=== PATIENT | female | born 1985 | race Caucasian/White ===

== ENCOUNTER 2016-04-22 11:53 | Outpatient (CLI) | payer OTHER ==
[2016-04-22 13:05] LABS: ABSOLUTE BASOPHILS # (AUTO) 0.1 10^3/uL (0.0-0.2); ABSOLUTE EOSINOPHILS # (AUTO) 0.1 10^3/uL (0.0-0.6); ABSOLUTE LYMPHOCYTES (AUTO) 1.9 10^3/uL (0.5-4.7); ABSOLUTE MONOCYTES (AUTO) 0.7 10^3/uL (0.1-1.4); ABSOLUTE NEUT (AUTO) 6.5 10^3/uL (1.7-8.2); BASOPHILS % (AUTO) 0.7 % (0-2); EOSINOPHILS % (AUTO) 1.4 % (0-6); HEMATOCRIT 31.4 % (36.0-47.0); HEMOGLOBIN 10.9 g/dL (12.0-15.5); HGB HCT DIFFERENCE 1.3; LYMPHOCYTES % (AUTO) 20.6 % (13-45); MEAN CORPUSCULAR HEMOGLOBIN 29.9 pg (27.0-33.4); MEAN CORPUSCULAR HGB CONC 34.6 g/dL (32.0-36.0); MEAN CORPUSCULAR VOLUME 86 fl (80-97); MONOCYTES % (AUTO) 7.6 % (3-13); RED BLOOD COUNT 3.64 10^6/uL (3.72-5.28); SEGMENTED NEUTROPHILS % (AUTO) 69.7 % (42-78); WHITE BLOOD COUNT 9.2 10^3/uL (4.0-10.5)
[2016-04-22 13:11] LABS: APPEARANCE,URINE CLOUDY; BILIRUBIN,URINE NEGATIVE (NEGATIVE); GLUCOSE, URINE NEGATIVE (NEGATIVE); KETONES,URINE NEGATIVE (NEGATIVE); LEUKOCYTE ESTERASE,URINE TRACE (NEGATIVE); NITRITE,URINE NEGATIVE (NEGATIVE); PROTEIN,URINE NEGATIVE (NEGATIVE); URINE SPECIFIC GRAVITY 1.014; UROBILINOGEN,URINE NEGATIVE mg/dL (<2.0)
[2016-04-22 13:22] LABS: ALANINE AMINOTRANSFERASE 15 U/L (9-52); ALBUMIN 3.6 g/dL (3.5-5.0); ALKALINE PHOSPHATASE 60 U/L (38-126); ANION GAP 9 (5-19); ASPARTATE AMINO TRANSFERASE 16 U/L (14-36); BILIRUBIN,TOTAL 0.4 mg/dL (0.2-1.3); BLOOD UREA NITROGEN 7 mg/dL (7-20); CALCIUM 9.5 mg/dL (8.4-10.2); CARBON DIOXIDE 24 mmol/L (22-30); CHLORIDE 104 mmol/L (98-107); CREATININE RESULT 0.44 mg/dL (0.52-1.25); GLUCOSE 77 mg/dL (75-110); LDH 294 U/L (313-618); POTASSIUM 3.9 mmol/L (3.6-5.0); SODIUM 136.7 mmol/L (137-145); TOTAL PROTEIN 6.3 g/dL (6.3-8.2); URIC ACID 3.4 mg/dL (2.5-6.2)
[2016-04-22 13:22] LABS: URINE BARBITURATES SCREEN NEGATIVE; URINE METHADONE SCREEN NEGATIVE; URINE OPIATES LOW NEGATIVE; URINE PHENCYCLIDINE SCREEN NEGATIVE
--- NOTE | 2016-04-22 14:00 | L&D Flow Sheet ---
LD Flowsheet Datetime Report Generated by CPN: 04/22/2016 14:00 Datetime: 04/22/2016 13:43 NBP Sys/Vira/Mean (mmHg): 110 (QS system process) : 61 (QS system process) : 80 (QS system process) Pulse: 66 (QS system process) LaborFlag: Labor (QS system process) Datetime: 04/22/2016 13:39 Communication Communication: Provider Orders Received (Ashley North RN) Communication Comments: Dr. Lowery on unit, reviewed strip. Reviewed pt lab results and VS. Reviewed pt history. Orders received to d/c pt home, no pre-eclampsia. (Ashley North RN) Datetime: 04/22/2016 13:28 NBP Sys/Vira/Mean (mmHg): 103 (QS system process) : 56 (QS system process) : 74 (QS system process) Pulse: 76 (QS system process) LaborFlag: Labor (QS system process) Datetime: 04/22/2016 13:13 NBP Sys/Vira/Mean (mmHg): 101 (QS system process) : 59 (QS system process) : 74 (QS system process) Pulse: 77 (QS system process) LaborFlag: Labor (QS system process) Datetime: 04/22/2016 12:58 NBP Sys/Vira/Mean (mmHg): 101 (QS system process) : 56 (QS system process) : 74 (QS system process) Pulse: 77 (QS system process) LaborFlag: Labor (QS system process) Datetime: 04/22/2016 12:55 Patient Care IV/Blood Work: Labs Drawn (Sarbjit Hoskins, RN) Datetime: 04/22/2016 12:44 NBP Sys/Vira/Mean (mmHg): 97 (QS system process) : 55 (QS system process) : 73 (QS system process) Pulse: 80 (QS system process) LaborFlag: Labor (QS system process) Datetime: 04/22/2016 12:29 NBP Sys/Vira/Mean (mmHg): 103 (QS system process) : 55 (QS system process) : 76 (QS system process) Pulse: 88 (QS system process) LaborFlag: Labor (QS system process) Datetime: 04/22/2016 12:15 Vital Signs Stage of : Labor (Ashley Vitrano, RN) Pain Pain Scale: 0 (Sarbjit Aidee, RN) Pain Presence: None/Denies (Sarbjit Aidee, RN) Vaginal Exam Vaginal Bleeding: None (Sarbjit Aidee, RN) Maternal Assessment Level of Consciousness: Fully Conscious (Sarbjit Hoskins RN) DTR's/Clonus: DTRs 2+; No Clonus (Sarbjit Hoskins, RN) Headache: Denies (Sarbjit Hoskins RN) Breath Sounds, Left: Clear and Equal (Sarbjit Hoskins RN) Breath Sounds, Right: Clear and Equal (Sarbjit Hoskins RN) Nausea/Vomiting: Denies (Sarbjit Hoskins RN) RUQ Epigastric Pain: Denies (Sarbjit Hoskins RN) Patient Position/Activity: Left Lateral (Sarbjit Hoskins, RN) Comfort Measures: Breathing/Relaxation (Sarbjit Hoskins RN) I/O Interventions: Clear Liquids Given; Up to BR (Sarbjit Hoskins RN) Teaching Instructional Method: Demo; Verbal; Patient Instructed; Family/Support Person Instructed; Verbalized Understanding (Sarbjit Hoskins RN) Plan of Care: Gestational Hypertension/Preeclampsia/Eclampsia (Sarbjit Hoskins RN) Pain Management: Pain Scale/Goals; Comfort Measures (Sarbjit Hoskins RN) PTL/PROM: Hydration; Signs/Symptoms of Infection (Sarbjit Hoskins RN) Related: Common Discomforts of ; Maternal Physical Changes; Maternal Emotional Changes; Nutrition; Hydration; Activity and Rest (Sarbjit Hoskins RN) LaborFlag: Labor (QS system process) Datetime: 04/22/2016 12:14 NBP Sys/Vira/Mean (mmHg): 116 (QS system process) : 55 (QS system process) : 77 (QS system process) Pulse: 78 (QS system process)
== END 2016-04-22 13:50 | disposition home or self-care (01) ==
LOC: LC 11:53
PROVIDERS: ATTEND Obstetrics & Gynecology
PROC: 4A1HXCZ Monitoring of Products of Conception, Cardiac Rate, External Approach (ICD-10-PCS; principal; 2016-04-22)
DX: Z34.92 Encounter for supervision of normal pregnancy, unspecified, second trimester (principal); Z36 Encounter for antenatal screening of mother; Z3A.27 27 weeks gestation of pregnancy
CPT/HCPCS: 36415; 80053; 80307; 81001; 83615; 84550; 85025

== ENCOUNTER → 2016-07-01 | Outpatient (CLI) | payer OTHER ==
[2016-07-01 11:19] LABS: URINE PROTEIN 14.5 mg/dL (<12)
[2016-07-01 13:36] LABS: CREATININE 0.48 mg/dL (0.52-1.25)
[2016-07-01 13:51] LABS: URINE CREATININE 41.2 mg/dL (16-327)
== END ==
LOC: OD 10:08
PROVIDERS: ATTEND Student in an Organized Health Care Education/Training Program
DX: O13.9 Gestational [pregnancy-induced] hypertension without significant proteinuria, unspecified trimester (principal)
CPT/HCPCS: 36415; 82565; 82575; 84156

== ENCOUNTER 2016-07-02 07:45 | Inpatient (IN) | payer OTHER ==
[2016-07-03] MEDS ORDERED: ONDANSETRON HCL INJ/PF 4 MG/2 ML SDV ONE (08:14)
[2016-07-03] MEDS ORDERED: LIDOCAINE 2% INJ-PF (20 MG/ML) 10 ML AMPUL ONE (08:14)
[2016-07-03] MEDS ORDERED: METOCLOPRAMIDE HCL INJ/PF 10 MG/2 ML SDV ONE (08:14)
[2016-07-03] MEDS ORDERED: GLYCOPYRROLATE INJ 0.4 MG/2 ML VIAL ONE (08:14)
[2016-07-03] MEDS ORDERED: CEFAZOLIN 2 GM/D5W RTU 2 GM/50 ML RTUPB IV PRN (09:58)
[2016-07-03] MEDS ORDERED: RINGERS SOLUTION,LACTATED 1,000 ML IV PRN ×2 (10:06→10:17)
[2016-07-03 10:17] LABS: URINE BARBITURATES SCREEN NEGATIVE; URINE METHADONE SCREEN NEGATIVE; URINE OPIATES LOW NEGATIVE; URINE PHENCYCLIDINE SCREEN NEGATIVE
[2016-07-03 10:45] LABS: ABSOLUTE EOSINOPHILS # (AUTO) 0.1 10^3/uL (0.0-0.6); ABSOLUTE LYMPHOCYTES (AUTO) 1.8 10^3/uL (0.5-4.7); ABSOLUTE MONOCYTES (AUTO) 0.7 10^3/uL (0.1-1.4); ABSOLUTE NEUT (AUTO) 5.6 10^3/uL (1.7-8.2); BASOPHILS % (AUTO) 0.6 % (0-2); HEMATOCRIT 29.1 % (36.0-47.0); HEMOGLOBIN 10.1 g/dL (12.0-15.5); HGB HCT DIFFERENCE 1.2; MEAN CORPUSCULAR HEMOGLOBIN 29.3 pg (27.0-33.4); MEAN CORPUSCULAR HGB CONC 34.7 g/dL (32.0-36.0); MEAN CORPUSCULAR VOLUME 84 fl (80-97); MONOCYTES % (AUTO) 8.2 % (3-13); RED BLOOD COUNT 3.45 10^6/uL (3.72-5.28); RED CELL DISTRIBUTION WIDTH 13.6 % (11.5-14.0); SEGMENTED NEUTROPHILS % (AUTO) 68.2 % (42-78); WHITE BLOOD COUNT 8.1 10^3/uL (4.0-10.5)
[2016-07-03 10:59] LABS: ALANINE AMINOTRANSFERASE 24 U/L (9-52); ALBUMIN 3.2 g/dL (3.5-5.0); ALKALINE PHOSPHATASE 97 U/L (38-126); ANION GAP 8 (5-19); ASPARTATE AMINO TRANSFERASE 17 U/L (14-36); BILIRUBIN,DIRECT 0.3 mg/dL (0.0-0.4); BILIRUBIN,TOTAL 0.8 mg/dL (0.2-1.3); BLOOD UREA NITROGEN 6 mg/dL (7-20); CARBON DIOXIDE 23 mmol/L (22-30); CHLORIDE 103 mmol/L (98-107); CREATININE RESULT 0.49 mg/dL (0.52-1.25); GLUCOSE 83 mg/dL (75-110); LDH 329 U/L (313-618); POTASSIUM 4.1 mmol/L (3.6-5.0); SODIUM 134.2 mmol/L (137-145); TOTAL PROTEIN 5.9 g/dL (6.3-8.2); URIC ACID 4.1 mg/dL (2.5-6.2)
[2016-07-03 11:37] LABS: AMORPHOUS SEDIMENT,URINE TRACE /HPF; APPEARANCE,URINE CLOUDY; BILIRUBIN,URINE NEGATIVE (NEGATIVE); GLUCOSE, URINE NEGATIVE (NEGATIVE); KETONES,URINE NEGATIVE (NEGATIVE); LEUKOCYTE ESTERASE,URINE NEGATIVE (NEGATIVE); NITRITE,URINE NEGATIVE (NEGATIVE); PROTEIN,URINE NEGATIVE (NEGATIVE); URINE SPECIFIC GRAVITY 1.015; UROBILINOGEN,URINE NEGATIVE mg/dL (<2.0)
[2016-07-03] MEDS ORDERED: ACETAMINOPHEN 100 ML IV ONE (12:44)
[2016-07-03] MEDS ORDERED: MIDAZOLAM 2 MG/2 ML INJ ONE (12:55)
[2016-07-03] MEDS ORDERED: OXYTOCIN 10 UNIT/ML VIAL ONE (12:55)
[2016-07-03] MEDS ORDERED: FENTANYL CITRATE INJ/PF 100 MCG/2 ML AMPUL ONE (12:55)
[2016-07-03] MEDS ORDERED: PROPOFOL INJ 200 MG/20 ML VIAL IV ONE (12:55)
[2016-07-03] MEDS ORDERED: OXYCODONE-ACETAMINOPHEN 5-325 MG TABLET PO PRN ×3 (13:45→15:31)
[2016-07-03] MEDS ORDERED: FENTANYL CITRATE INJ/PF 100 MCG/2 ML AMPUL IV PRN ×3 (13:45)
[2016-07-03] MEDS ORDERED: MORPHINE SULFATE 10 MG/ML INJ IV PRN (13:45)
[2016-07-03] MEDS ORDERED: ONDANSETRON HCL INJ/PF 4 MG/2 ML SDV IV PRN (13:45)
[2016-07-03] MEDS ORDERED: DIPHENHYDRAMINE HCL 50 MG/ML VIAL IV PRN (13:45)
[2016-07-03] MEDS ORDERED: MEPERIDINE HCL/PF INJ 25 MG/1 ML DISP.SYRIN IV PRN (13:45)
[2016-07-03] MEDS ORDERED: PROMETHAZINE HCL INJ 25 MG/1 ML VIAL IV PRN ×2 (13:45)
--- NOTE | 2016-07-03 14:26 | Operative Report ---
Operative Report DATE OF SURGERY: 07/03/16 PREOPERATIVE DIAGNOSIS: Intrauterine at 37+ weeks with history of C- section 2, gestational hypertension, desire for repeat POSTOPERATIVE DIAGNOSIS: Intrauterine at 37+ weeks with gestational hypertension status post repeat OPERATION: Intrauterine at 37+ weeks with gestational hypertension, history of section 2 and desire for repeat, scar revision SURGEON: SANGEETA NEGRON ANESTHESIA: Spinal TISSUE REMOVED OR ALTERED: Placenta ESTIMATED BLOOD LOSS: 500 mL INTRAOPERATIVE FINDINGS: Negron female in vertex presentation with clear amniotic fluid. Apgars 9 at 1 and 9 at 5 minutes weight 6 lbs. 9 oz. Normal uterus, tubes and ovaries. Skin scar hypertrophic. PROCEDURE: After discussing risks benefits and alternatives of the procedure and obtaining informed consent the patient was taken to the operating room where spinal anesthesia was achieved. She was positioned in the dorsal supine position with a leftward tilt. She was then prepped and draped in the usual standard fashion. HYPERTROPHIC Pfannenstiel scar tissue was excised and the abdomen was entered in layers in the usual standard fashion. The C safe knife was used to make a low-transverse hysterotomy incision. The surgeon's hand was entered into the hysterotomy incision and the vertex elevated and delivered. Shoulders and body were delivered easily thereafter. Nasopharynx and oropharynx were bulb suctioned. Cord was clamped and cut. The was handed to pediatrics who were present. The placenta was manually extracted. The uterus was cleared of all clots and debris. The hysterotomy incision was closed with 0 Monocryl in a running locked fashion. Excellent hemostasis was observed. The uterus tubes and ovaries were returned to the peritoneal cavity. The cavity was irrigated with saline and hemostasis was again assured. A layer of Interceed was placed in an inverted T fashion over the lower uterine segment and anterior aspect of the uterus. Peritoneum was closed with 2-0 Vicryl in a pursestring fashion. Rectus muscles were loosely reapproximated with interrupted stitches of 2-0 Vicryl. The subfascial space was inspected and noted to be hemostatic. The fascia was closed with #1 Vicryl. The subcutaneous tissues were irrigated and hemostasis assured. 3-O plain gut was used to reapproximate the subcutaneous space. The skin was closed in a subcuticular fashion with 4-0 Monocryl. An OpSite dressing was applied. The patient was taken to recovery in stable condition. All sponge needle lap and instrument counts were correct correct.
[2016-07-03] MEDS: FENTANYL CITRATE INJ/PF 100 MCG/2 ML AMPUL ONE ×4 (15:08→15:41)
[2016-07-03] MEDS ORDERED: ACETAMINOPHEN 325 MG TABLET PO PRN (15:31)
[2016-07-03] MEDS ORDERED: MEASLES,MUMPS&RUBELLA VACC/PF 0.5 ML VIAL SUBCUT PRN (15:31)
[2016-07-03] MEDS ORDERED: OXYTOCIN/NORMAL SALINE 20 UNIT/1,000 ML RTUINJ INJ PRN (15:31)
[2016-07-03] MEDS ORDERED: PROMETHAZINE HCL INJ 25 MG/1 ML VIAL IM PRN (15:31)
[2016-07-03] MEDS ORDERED: DIPH/PERTUSS(ACELL)/TETANUS VAC/PF 0.5 ML SYR (>=10YO) IM PRN (15:31)
[2016-07-03] MEDS: HYDROMORPHONE HCL INJ/PF 2 MG/ML AMPULE IV PRN ×2 (16:39→20:46)
[2016-07-03] MEDS ORDERED: KETOROLAC TROMETHAMINE INJ/PF 30 MG/1 ML SDV ONE (17:55)
[2016-07-03] MEDS ORDERED: KETOROLAC TROMETHAMINE INJ/PF 30 MG/1 ML SDV IV ONE (18:15)
[2016-07-03] MEDS ORDERED: PROCHLORPERAZINE EDISYLATE INJ 10 MG/2 ML VIAL IV ONE (18:30)
[2016-07-03] MEDS ORDERED: ONDANSETRON HCL INJ/PF 4 MG/2 ML SDV IV ONE (18:30)
[2016-07-03] MEDS: DOCUSATE SODIUM 100 MG CAPSULE PO SCH (18:51)
[2016-07-03] MEDS: IBUPROFEN 800 MG TABLET PO SCH ×2 (18:51→23:09)
[2016-07-03] MEDS ORDERED: ZOLPIDEM TARTRATE 5 MG TABLET PO PRN (19:08)
[2016-07-03] MEDS: OXYCODONE-ACETAMINOPHEN 5-325 MG TABLET PO PRN (19:24)
[2016-07-03] MEDS: RINGERS SOLUTION,LACTATED 1,000 ML IV PRN (20:00)
[2016-07-03] MEDS ORDERED: RINGERS SOLUTION,LACTATED 1,000 ML IV ONE (23:00)
[2016-07-04] MEDS ORDERED: RINGERS SOLUTION,LACTATED 500 ML IV ONE ×2 (00:15→04:15)
[2016-07-04] MEDS: HYDROMORPHONE HCL INJ/PF 2 MG/ML AMPULE IV PRN ×3 (03:34→13:12)
[2016-07-04 03:56] LABS: HEMATOCRIT 22.7 % (36.0-47.0); HGB HCT DIFFERENCE 0.7; MEAN CORPUSCULAR HEMOGLOBIN 28.9 pg (27.0-33.4); MEAN CORPUSCULAR HGB CONC 34.3 g/dL (32.0-36.0); MEAN CORPUSCULAR VOLUME 84 fl (80-97); RED BLOOD COUNT 2.69 10^6/uL (3.72-5.28); RED CELL DISTRIBUTION WIDTH 13.7 % (11.5-14.0); WHITE BLOOD COUNT 7.1 10^3/uL (4.0-10.5)
[2016-07-04 04:04] LABS: HEMOGLOBIN 7.8 g/dL (12.0-15.5)
[2016-07-04] MEDS: OXYCODONE-ACETAMINOPHEN 5-325 MG TABLET PO PRN ×4 (06:39→21:31)
[2016-07-04] MEDS: IBUPROFEN 800 MG TABLET PO SCH ×2 (06:39→11:34)
[2016-07-04] MEDS: DOCUSATE SODIUM 100 MG CAPSULE PO SCH ×2 (09:19→17:43)
[2016-07-04] MEDS: PRENATAL VITAMIN W-O CA NO5/FE FUMARATE/FA CAPSULE PO SCH (09:19)
--- NOTE | 2016-07-04 11:08 | PDOC PROGRESS REPORT ---
Subjective-OB Subjective: Post Delivery Day: 31 year old. s/p repeat x 3 c section history of GHTN anemia hgb 7.8 fluid boluses x x3 above uterus- no tenderness noted bilateral tenderness on uterus- suspicious for hematomas pt reports pain steadily 4-5 moves in bed with hesitation corcoran catheter in place 200 cc clear yellow urine since 0600 op site evaluated-noted dried spots on dressing/ no active bleeding lungs ctab abdominal ct with contrast now vss reviewed with Dr. Cox- agrees Physical Exam (OB) Vital Signs: Temp Pulse Resp BP Pulse Ox 98.1 F 114 H 14 103/73 99 07/04/16 07:33 07/04/16 07:33 07/04/16 07:33 07/04/16 07:33 07/04/16 07:33 Intake & Output 07/03/16 07/04/16 07/05/16 06:59 06:59 06:59 Intake Total 3175 Output Total 100 1100 Balance -100 2075 Weight 76.204 kg - PIH/Pre-Eclampsia DTR's: 2 + Clonus: Negative Headache: Absent Epigastric Pain: No Visual Changes: No - Dressing Removed: No - opsite Incision: Dressing, Draining - Lochia Lochia Amount: Small 10-25 ml Lochia Color: Rubra/Red - Abdomen Description: Soft, Round Hernia Present: No Fundal Description: Firm, Midline Fundal Height: u/u - u/2 Objective-Diagnostic Laboratory: 07/04/16 03:29 07/03/16 10:29 07/03/16 07/03/16 07/03/16 09:40 10:29 10:29 WBC RBC Hgb Hct MCV MCH MCHC RDW Plt Count Sodium 134.2 L Potassium 4.1 Chloride 103 Carbon Dioxide 23 Anion Gap 8 BUN 6 L Creatinine 0.49 L Est GFR ( Amer) > 60 Est GFR (Non-Af Amer) > 60 Glucose 83 Uric Acid 4.1 Calcium 9.0 Total Bilirubin 0.8 AST 17 ALT 24 Alkaline Phosphatase 97 Total Protein 5.9 L Albumin 3.2 L Urine Color YELLOW Urine Appearance CLOUDY Urine pH 9.0 Ur Specific [place] 1.015 Urine Protein NEGATIVE Urine Glucose (UA) NEGATIVE Urine Ketones NEGATIVE Urine Blood NEGATIVE Urine Nitrite NEGATIVE Ur Leukocyte Esterase NEGATIVE Urine WBC (Auto) 2 Urine RBC (Auto) 2 Blood Type O POSITIVE Antibody Screen NEGATIVE 07/04/16 03:29 WBC 7.1 RBC 2.69 L Hgb 7.8 L D Hct 22.7 L MCV 84 MCH 28.9 MCHC 34.3 RDW 13.7 Plt Count 214 Sodium Potassium Chloride Carbon Dioxide Anion Gap BUN Creatinine Est GFR ( Amer) Est GFR (Non-Af Amer) Glucose Uric Acid Calcium Total Bilirubin AST ALT Alkaline Phosphatase Total Protein Albumin Urine Color Urine Appearance Urine pH Ur Specific [place] Urine Protein Urine Glucose (UA) Urine Ketones Urine Blood Urine Nitrite Ur Leukocyte Esterase Urine WBC (Auto) Urine RBC (Auto) Blood Type Antibody Screen
[2016-07-04] MEDS: RINGERS SOLUTION,LACTATED 1,000 ML IV PRN (11:36)
[2016-07-04 15:38] LABS: HEMATOCRIT 18.2 % (36.0-47.0); HGB HCT DIFFERENCE 0.4; MEAN CORPUSCULAR HEMOGLOBIN 29.2 pg (27.0-33.4); MEAN CORPUSCULAR HGB CONC 34.3 g/dL (32.0-36.0); MEAN CORPUSCULAR VOLUME 85 fl (80-97); RED BLOOD COUNT 2.13 10^6/uL (3.72-5.28); RED CELL DISTRIBUTION WIDTH 13.9 % (11.5-14.0); WHITE BLOOD COUNT 7.6 10^3/uL (4.0-10.5)
[2016-07-04 15:45] LABS: HEMOGLOBIN 6.2 g/dL (12.0-15.5)
[2016-07-04] MEDS ORDERED: DIPHENHYDRAMINE HCL 50 MG CAPSULE PO PRN (16:05)
[2016-07-04] MEDS ORDERED: ACETAMINOPHEN 325 MG TABLET PO PRN (16:05)
--- NOTE | 2016-07-04 16:07 | PDOC PROGRESS REPORT ---
Subjective Subjective:: Pt reports still having abdominal pain, no n/v. Reports feeling a little tired and dizzy Physical Exam - Physical Exam Vital Signs: Temp Pulse Resp BP Pulse Ox 98.3 F 122 H 20 139/72 H 100 07/04/16 15:21 07/04/16 15:21 07/04/16 15:21 07/04/16 15:21 07/04/16 15:21 Intake & Output 07/03/16 07/04/16 07/05/16 06:59 06:59 06:59 Intake Total 3175 300 Output Total 100 1100 275 Balance -100 2075 25 Weight 76.204 kg General appearance: PRESENT: no acute distress, well-developed Result Laboratory Results: 07/04/16 14:50 07/03/16 10:29 07/03/16 07/04/16 07/04/16 10:29 03:29 14:50 WBC 7.1 7.6 RBC 2.69 L 2.13 L Hgb 7.8 L D 6.2 L Hct 22.7 L 18.2 L MCV 84 85 MCH 28.9 29.2 MCHC 34.3 34.3 RDW 13.7 13.9 Plt Count 214 194 Blood Type O POSITIVE Antibody Screen NEGATIVE Impressions: Abdomen/Pelvis CT 07/04/16 00:00 IMPRESSION: Hematomas along the bilateral rectus muscle sheaths, and space of Retzius. Fluid or hemorrhage dissecting along tissue planes along the right and left abdominal wall between muscle layers. Small to moderate amount of free intraperitoneal fluid. Findings discussed with Dr. Cox Assessment & Plan - Diagnosis (1) Hematoma complicating a procedure Is this a current diagnosis for this admission?: Yes (2) Status post repeat low transverse section Is this a current diagnosis for this admission?: Yes - Time Time Spent with patient: Less than 15 minutes Critical Time spent with patient: Less than 15 minutes Anticipated discharge: Home, Other - Pt with 2 large hematomas, one located on right rectus sheath and one near bladder, see CT report Pt stable at this time. Will check serial cbc's and will now transfuse 2 units of PRBC Moiniter closely
[2016-07-04 20:50] LABS: HEMATOCRIT 18.1 % (36.0-47.0); HGB HCT DIFFERENCE 0.2; MEAN CORPUSCULAR HEMOGLOBIN 29.1 pg (27.0-33.4); MEAN CORPUSCULAR VOLUME 86 fl (80-97); RED BLOOD COUNT 2.12 10^6/uL (3.72-5.28); RED CELL DISTRIBUTION WIDTH 13.9 % (11.5-14.0); WHITE BLOOD COUNT 7.3 10^3/uL (4.0-10.5)
[2016-07-04 21:07] LABS: HEMOGLOBIN 6.1 g/dL (12.0-15.5)
[2016-07-05] MEDS: HYDROMORPHONE HCL INJ/PF 2 MG/ML AMPULE IV PRN ×4 (01:20→20:27)
[2016-07-05 02:18] LABS: HEMATOCRIT 20.7 % (36.0-47.0); HGB HCT DIFFERENCE 0.9; MEAN CORPUSCULAR HEMOGLOBIN 29.9 pg (27.0-33.4); MEAN CORPUSCULAR HGB CONC 34.9 g/dL (32.0-36.0); MEAN CORPUSCULAR VOLUME 86 fl (80-97); RED BLOOD COUNT 2.42 10^6/uL (3.72-5.28); WHITE BLOOD COUNT 8.3 10^3/uL (4.0-10.5)
[2016-07-05 02:22] LABS: HEMOGLOBIN 7.2 g/dL (12.0-15.5)
[2016-07-05] MEDS: OXYCODONE-ACETAMINOPHEN 5-325 MG TABLET PO PRN ×2 (08:37→22:49)
--- NOTE | 2016-07-05 09:15 | PDOC PROGRESS REPORT ---
Subjective Progress Note for:: 07/05/16 Subjective:: cont's to have significant pain and feeling pressure/distention. no flatus. is now transfusing 4th unit of blood. denies nausea. Physical Exam - Physical Exam Vital Signs: Temp Pulse Resp BP Pulse Ox 98.1 F 102 H 16 129/78 H 97 07/05/16 07:59 07/05/16 07:59 07/05/16 07:59 07/05/16 07:59 07/05/16 07:59 Intake & Output 07/04/16 07/05/16 07/06/16 06:59 06:59 06:59 Intake Total 3175 1725 300 Output Total 1100 2175 Balance 2075 -450 300 Weight 76.204 kg General appearance: PRESENT: cooperative, mild distress, well-nourished GI/Abdominal exam: PRESENT: distended, firm, guarding, hypoactive bowel sounds, tenderness Neurological exam: PRESENT: alert, awake Result Laboratory Results: 07/05/16 02:05 07/03/16 10:29 07/03/16 07/04/16 07/04/16 10:29 14:50 20:40 WBC 7.6 7.3 RBC 2.13 L 2.12 L Hgb 6.2 L 6.1 L Hct 18.2 L 18.1 L MCV 85 86 MCH 29.2 29.1 MCHC 34.3 34.0 RDW 13.9 13.9 Plt Count 194 163 Blood Type O POSITIVE Antibody Screen NEGATIVE 07/05/16 02:05 WBC 8.3 RBC 2.42 L Hgb 7.2 L Hct 20.7 L MCV 86 MCH 29.9 MCHC 34.9 RDW 14.0 Plt Count 175 Blood Type Antibody Screen Impressions: Abdomen/Pelvis CT 07/04/16 00:00 IMPRESSION: Hematomas along the bilateral rectus muscle sheaths, and space of Retzius. Fluid or hemorrhage dissecting along tissue planes along the right and left abdominal wall between muscle layers. Small to moderate amount of free intraperitoneal fluid. Findings discussed with Dr. Cox Assessment & Plan - Diagnosis (1) Hematoma complicating a procedure Is this a current diagnosis for this admission?: Yes (2) Status post repeat low transverse section Is this a current diagnosis for this admission?: Yes - Time Time Spent with patient: 25-34 minutes Critical Time spent with patient: 15-24 minutes Medications reviewed and adjusted accordingly: Yes Anticipated discharge: Home Within: within 48 hours - Inpatient Certification Based on my medical assessment, after consideration of the patient's comorbidities, presenting symptoms, or acuity I expect that the services needed warrant INPATIENT care.: Yes I certify that my determination is in accordance with my understanding of Medicare's requirements for reasonable and necessary INPATIENT services [42 CFR 412.3e].: Yes Medical Necessity: Need Close Monitoring Due to Risk of Patient Decompensation, Need for Surgery - Plan Summary Plan Summary: after discussion with Dr. Pantoja and GS Dr. Enamorado will plan evacuation of hematoma today. d/w patient and her discussing risks/benefits/ alternatives including conservative management w/ antibiotics. Patient will proceed with evacuation. scheduled with OR and will go ahead at 4:15 as pt had small piece of fraga at 815.
[2016-07-05] MEDS: PRENATAL VITAMIN W-O CA NO5/FE FUMARATE/FA CAPSULE PO SCH (09:42)
[2016-07-05] MEDS: DOCUSATE SODIUM 100 MG CAPSULE PO SCH ×2 (09:43→19:59)
[2016-07-05 13:26] LABS: HEMATOCRIT 24.7 % (36.0-47.0); HEMOGLOBIN 8.9 g/dL (12.0-15.5); MEAN CORPUSCULAR HGB CONC 35.8 g/dL (32.0-36.0); MEAN CORPUSCULAR VOLUME 84 fl (80-97); RED BLOOD COUNT 2.95 10^6/uL (3.72-5.28); RED CELL DISTRIBUTION WIDTH 14.2 % (11.5-14.0)
--- NOTE | 2016-07-05 13:28 | CONSULTATION REPORT E ---
Consultation Report NAME: GRISEL BOOKER : 1985 AGE: 31Y DATE: 07/05/2016 224 A TO: RACHAEL ANGELA M.D. FROM: SANGEETA NEGRON M.D. Requesting Physician REASON FOR CONSULTATION: Patient with a large hematoma of the area below the section incision with 1 large hematoma at 10 cm x 6 cm x 8 cm following *------* placement in the bladder and symphysis pubis and a 16 x 8 x 9 cm hematoma along the bilateral inferior rectus muscle sheath. PHYSICAL EXAMINATION: The patient was examined together with attending physician and noted that the abdomen is somewhat tender, but no evidence of inflammation. She is getting a blood transfusion of hemoglobin about 6.2 post section. This initial hemoglobin was about 10. Her vital signs remained stable. IMPRESSION: Large hematoma at the section incision site and below the fascia. PLAN: She will have a evacuation of the hematoma to be done by Dr. Lowery and I told Dr. Lowery I will be available for any assistance that is needed if needed. DICTATING PHYSICIAN: RACHAEL ANGELA M.D. [id number] PHY#: [id number] ID: [id number] JOB#: [id number] ACCT: [id number] cc:RACHAEL ANGELA M.D. >
[2016-07-05 13:32] LABS: PROTHROMBIN TIME 14.1 SEC (11.4-15.4)
[2016-07-05] MEDS ORDERED: FENTANYL CITRATE INJ/PF 100 MCG/2 ML AMPUL IV PRN ×3 (15:14)
[2016-07-05] MEDS ORDERED: MORPHINE SULFATE 10 MG/ML INJ IV PRN (15:14)
[2016-07-05] MEDS ORDERED: MEPERIDINE HCL/PF INJ 25 MG/1 ML DISP.SYRIN IV PRN (15:14)
[2016-07-05] MEDS ORDERED: PROMETHAZINE HCL INJ 25 MG/1 ML VIAL IV PRN ×2 (15:14)
[2016-07-05] MEDS ORDERED: DIPHENHYDRAMINE HCL 50 MG/ML VIAL IV PRN (15:14)
[2016-07-05] MEDS ORDERED: OXYCODONE-ACETAMINOPHEN 5-325 MG TABLET PO PRN ×2 (15:14)
[2016-07-05] MEDS ORDERED: ACETAMINOPHEN 100 ML IV ONE (15:22)
[2016-07-05] MEDS ORDERED: MIDAZOLAM 2 MG/2 ML INJ ONE (15:22)
[2016-07-05] MEDS ORDERED: PROPOFOL INJ 200 MG/20 ML VIAL IV ONE (15:22)
[2016-07-05] MEDS ORDERED: FENTANYL CITRATE INJ/PF 250 MCG/5 ML AMPULE ONE (15:22)
[2016-07-05] MEDS ORDERED: MORPHINE SULFATE 10 MG/ML INJ ONE (15:23)
[2016-07-05] MEDS ORDERED: NEOSTIGMINE METHYLSULFATE 10 MG/10 ML VIAL ONE (16:37)
[2016-07-05] MEDS ORDERED: LIDOCAINE 2% INJ-PF (20 MG/ML) 10 ML AMPUL ONE (16:37)
[2016-07-05] MEDS ORDERED: ONDANSETRON HCL INJ/PF 4 MG/2 ML SDV ONE (16:37)
[2016-07-05] MEDS ORDERED: GLYCOPYRROLATE INJ 0.4 MG/2 ML VIAL ONE (16:37)
[2016-07-05] MEDS ORDERED: ROCURONIUM BROMIDE INJ 50 MG/5 ML VIAL IV ONE (16:37)
[2016-07-05] MEDS ORDERED: METOCLOPRAMIDE HCL INJ/PF 10 MG/2 ML SDV ONE (16:37)
[2016-07-05] MEDS ORDERED: SUCCINYLCHOLINE CHLORIDE INJ 200 MG/10 ML VIAL ONE (16:37)
[2016-07-05] MEDS ORDERED: DEXAMETHASONE SOD PHOSPHATE INJ 4 MG/1 ML VIAL ONE (16:37)
[2016-07-05] MEDS: FENTANYL CITRATE INJ/PF 100 MCG/2 ML AMPUL ONE ×2 (18:06→18:18)
[2016-07-05] MEDS: HYDROMORPHONE HCL INJ/PF 2 MG/ML AMPULE ONE ×2 (18:30→18:40)
--- NOTE | 2016-07-05 18:59 | OPERATIVE REPORT E ---
Operative Report NAME: GRISEL BOOKER : 1985 AGE: 31Y DATE OF SURGERY: 07/05/2016 ROOM: 224 PREOPERATIVE DIAGNOSIS: Postoperative hematoma. POSTOPERATIVE DIAGNOSIS: Postoperative hematoma. OPERATIONS: 1. Evacuation of hematoma. 2. Exploratory laparotomy. SURGEON: Katia Murphy M.D. ANESTHESIA: Dr. Murphy with general. FINDINGS: Approximately 1000 mL of blood clot obtained between 2 different spaces: 1 was just beneath the rectus sheath and the other was in the space of Retzius between the bladder and the pubic symphysis. There was a perforated vessel on the right side of the rectus muscle that was actively bleeding and pumping, tied off with 0 Vicryl. ESTIMATED BLOOD LOSS: Approximately 1000 mL. COMPLICATIONS: None. PROCEDURE IN DETAIL: The patient was taken to the operating room, prepared and draped in a normal sterile fashion in the supine position. The patient's previous incision was opened with a pair of Mayos until the blood clot was noted just beneath the skin surface. This blood clot was evacuated and the fascial incision was opened with the same Contreras scissors with further blood clot noted. The rectus muscle was then noted to have the bleeder on the right rectus muscle. This was located with a hemostat and tied off with a piece of 0 chromic using a [id number] stitch. On further exploration, we have copiously irrigated and evacuated the blood clot as needed using significant amount of the irrigation and suction as well as manual lavage. There was then noted to be what appeared to be blood and blood clot coming from underneath the rectus muscle, so the rectus muscle ties were transected using Contreras scissors as well, and the large hematoma was inspected and found between the pubic symphysis and the bladder, which accounted for the patient's significant vaginal swelling and ecchymosis that was noted prior to the procedure. This blood clot was also evacuated. There was no active bleeding noted in the space of Retzius and we applied pressure to the space of Retzius for approximately 5 minutes. Upon removal of the laparotomy sponge, there was still no further bleeding and the rest of the blood clot was carefully removed using irrigation and suction. Once this inspection was completed and I was reassured that there was no further active bleeding anywhere, I closed the rectus muscle and peritoneum, I reapproximated with a single mattress stitch of 2-0 chromic. The fascia was then closed with O Vicryl. A LINDSEY drain was then placed above the fascia and a subcutaneous stitch was put in using the plain catgut. The skin was then closed with 4-0 Vicryl and a LINDSEY drain was placed in the normal fashion, exiting just to the right of the initial incision. The patient tolerated the procedure well. Sponge, lap and needle counts were correct x 2, and the patient was taken to recovery in stable condition. DICTATING PHYSICIAN: KATIA MURPHY M.D. [id number] PHY#: [id number] ID: [id number] JOB#: [id number] ACCT: [id number] cc:KATIA MURPHY M.D. >
[2016-07-05] MEDS: CEFAZOLIN 2 GM/D5W RTU 2 GM/50 ML RTUPB IV SCH (21:26)
[2016-07-05 21:29] LABS: HEMATOCRIT 28.2 % (36.0-47.0); HEMOGLOBIN 9.7 g/dL (12.0-15.5); HGB HCT DIFFERENCE 0.9; MEAN CORPUSCULAR HEMOGLOBIN 29.2 pg (27.0-33.4); MEAN CORPUSCULAR HGB CONC 34.5 g/dL (32.0-36.0); MEAN CORPUSCULAR VOLUME 85 fl (80-97); RED BLOOD COUNT 3.33 10^6/uL (3.72-5.28); WHITE BLOOD COUNT 10.3 10^3/uL (4.0-10.5)
[2016-07-06] MEDS: HYDROMORPHONE HCL INJ/PF 2 MG/ML AMPULE IV PRN ×4 (01:15→14:41)
[2016-07-06] MEDS: RINGERS SOLUTION,LACTATED 1,000 ML IV PRN (03:32)
[2016-07-06] MEDS: OXYCODONE-ACETAMINOPHEN 5-325 MG TABLET PO PRN ×4 (03:40→20:53)
[2016-07-06] MEDS: CEFAZOLIN 2 GM/D5W RTU 2 GM/50 ML RTUPB IV SCH ×3 (05:56→22:12)
[2016-07-06] MEDS: SIMETHICONE 80 MG TAB.CHEW PO PRN ×2 (06:20→20:53)
[2016-07-06 06:46] LABS: HEMATOCRIT 23.8 % (36.0-47.0); HEMOGLOBIN 8.4 g/dL (12.0-15.5); HGB HCT DIFFERENCE 1.4; MEAN CORPUSCULAR HGB CONC 35.1 g/dL (32.0-36.0); MEAN CORPUSCULAR VOLUME 85 fl (80-97); RED BLOOD COUNT 2.79 10^6/uL (3.72-5.28); RED CELL DISTRIBUTION WIDTH 14.2 % (11.5-14.0); WHITE BLOOD COUNT 9.9 10^3/uL (4.0-10.5)
--- NOTE | 2016-07-06 07:27 | PDOC PROGRESS REPORT ---
Subjective Progress Note for:: 07/06/16 Subjective:: feeling much better than yesterday. pain is controlled with iv meds and oral meds. noticed some swelling in outer thighs. no vomiting, no flatus Physical Exam - Physical Exam Vital Signs: Temp Pulse Resp BP Pulse Ox 98.4 F 88 18 127/82 H 100 07/06/16 03:45 07/06/16 03:45 07/06/16 03:45 07/06/16 03:45 07/06/16 03:45 Intake & Output 07/05/16 07/06/16 07/07/16 06:59 06:59 06:59 Intake Total 1725 7990 Output Total 2175 6067.5 Balance -450 1922.5 General appearance: PRESENT: no acute distress, cooperative GI/Abdominal exam: PRESENT: distended, firm, tenderness - signs improved from yesterday but still present Gentrourinary exam: PRESENT: ecchymosis, erythema - edema improved some from immediately post op Extremities exam: PRESENT: +1 edema - outer thighs Musculoskeletal exam: PRESENT: ambulatory Result Laboratory Results: 07/06/16 06:17 07/03/16 10:29 07/03/16 07/05/16 07/05/16 10:29 13:15 21:13 WBC 9.0 10.3 RBC 2.95 L 3.33 L Hgb 8.9 L 9.7 L Hct 24.7 L 28.2 L MCV 84 85 MCH 30.0 29.2 MCHC 35.8 34.5 RDW 14.2 H 14.0 Plt Count 154 173 Blood Type O POSITIVE Antibody Screen NEGATIVE 07/06/16 06:17 WBC 9.9 RBC 2.79 L Hgb 8.4 L Hct 23.8 L MCV 85 MCH 30.0 MCHC 35.1 RDW 14.2 H Plt Count 170 Blood Type Antibody Screen Impressions: Abdomen/Pelvis CT 07/04/16 00:00 IMPRESSION: Hematomas along the bilateral rectus muscle sheaths, and space of Retzius. Fluid or hemorrhage dissecting along tissue planes along the right and left abdominal wall between muscle layers. Small to moderate amount of free intraperitoneal fluid. Findings discussed with Dr. Cox Assessment & Plan - Diagnosis (1) Hematoma complicating a procedure Is this a current diagnosis for this admission?: Yes (2) Status post repeat low transverse section Is this a current diagnosis for this admission?: Yes - Time Time Spent with patient: 15-24 minutes Critical Time spent with patient: Less than 15 minutes Medications reviewed and adjusted accordingly: Yes Anticipated discharge: Home Within: within 48 hours - Inpatient Certification Based on my medical assessment, after consideration of the patient's comorbidities, presenting symptoms, or acuity I expect that the services needed warrant INPATIENT care.: Yes I certify that my determination is in accordance with my understanding of Medicare's requirements for reasonable and necessary INPATIENT services [42 CFR 412.3e].: Yes Medical Necessity: Need Close Monitoring Due to Risk of Patient Decompensation, Need for IV Antibiotics - will continue iv antibiotics. continue corcoran catheter until labial swelling improved more. LINDSEY drain needs to have minimal drainage and can d/c tomorrow if cont's to be minimal. (less than 20 cc)
--- NOTE | 2016-07-06 09:47 | PDOC PROGRESS REPORT ---
Subjective-OB Subjective: Post Delivery Day: 3 31 year old. Denies any needs at this time, states pain is moderately well controlled, corcoran in place, lochia is stable, tolerating diet, bonding well with baby. Is feeling much better today. Physical Exam (OB) Vital Signs: Temp Pulse Resp BP Pulse Ox 98.1 F 81 16 123/88 H 100 07/06/16 08:59 07/06/16 08:59 07/06/16 08:59 07/06/16 08:59 07/06/16 08:59 Intake & Output 07/05/16 07/06/16 07/07/16 06:59 06:59 06:59 Intake Total 1725 7990 Output Total 2175 6067.5 Balance -450 1922.5 - PIH/Pre-Eclampsia DTR's: 2 + Clonus: Negative Headache: Absent Epigastric Pain: No Visual Changes: No - Dressing Removed: No - opsite dressing in place Incision: Dressing Closure Type: opsite - Lochia Lochia Amount: Scant < 10 ml Lochia Color: Rubra/Red - Abdomen Description: Tender, Soft Hernia Present: No Fundal Description: Firm, Midline Fundal Height: u/u - u/2 Objective-Diagnostic Laboratory: 07/06/16 06:17 07/03/16 10:29 07/03/16 07/05/16 07/05/16 10:29 13:15 21:13 WBC 9.0 10.3 RBC 2.95 L 3.33 L Hgb 8.9 L 9.7 L Hct 24.7 L 28.2 L MCV 84 85 MCH 30.0 29.2 MCHC 35.8 34.5 RDW 14.2 H 14.0 Plt Count 154 173 Blood Type O POSITIVE Antibody Screen NEGATIVE 07/06/16 06:17 WBC 9.9 RBC 2.79 L Hgb 8.4 L Hct 23.8 L MCV 85 MCH 30.0 MCHC 35.1 RDW 14.2 H Plt Count 170 Blood Type Antibody Screen Assessment and Plan(PN) - Assessment and Plan (1) Hematoma complicating a procedure Is this a current diagnosis for this admission?: YesPlan: continue to monitor (2) Status post repeat low transverse section Is this a current diagnosis for this admission?: YesPlan: progressive ambulation routine post op care - Time Spent with Patient Time with patient: Less than 15 minutes Critical Time spent with patient: Less than 15 minutes Medications reviewed and adjusted accordingly: Yes - Disposition Anticipated Discharge: Home Within: within 24 hours
[2016-07-06] MEDS: DOCUSATE SODIUM 100 MG CAPSULE PO SCH ×2 (09:52→17:36)
[2016-07-06] MEDS: PRENATAL VITAMIN W-O CA NO5/FE FUMARATE/FA CAPSULE PO SCH (09:52)
[2016-07-06] MEDS: ONDANSETRON 4 MG TAB.RAPDIS PO PRN ×2 (11:51→20:53)
[2016-07-07] MEDS: HYDROMORPHONE HCL INJ/PF 2 MG/ML AMPULE IV PRN (00:13)
[2016-07-07] MEDS: OXYCODONE-ACETAMINOPHEN 5-325 MG TABLET PO PRN ×4 (02:47→21:20)
[2016-07-07] MEDS: SIMETHICONE 80 MG TAB.CHEW PO PRN (06:05)
[2016-07-07] MEDS: CEFAZOLIN 2 GM/D5W RTU 2 GM/50 ML RTUPB IV SCH ×3 (06:05→21:20)
--- NOTE | 2016-07-07 07:51 | PDOC PROGRESS REPORT ---
Subjective Progress Note for:: 07/07/16 Subjective:: no flatus yet, no nausea, able to eat some food last night. She reports that she feels that she might pass gas today. She denies f/c/n/v. She reports neck stiffness. Physical Exam - Physical Exam Vital Signs: Temp Pulse Resp BP Pulse Ox 98.2 F 94 18 126/81 H 95 07/07/16 04:45 07/07/16 04:45 07/07/16 04:45 07/07/16 04:45 07/07/16 04:45 Intake & Output 07/06/16 07/07/16 07/08/16 06:59 06:59 06:59 Intake Total 7990 625 Output Total 6067.5 1930 610 Balance 1922.5 -1305 -610 General appearance: PRESENT: no acute distress, well-developed, well-nourished Head exam: PRESENT: atraumatic, normocephalic Neck exam: PRESENT: full ROM. ABSENT: carotid bruit, JVD, lymphadenopathy, thyromegaly Cardiovascular exam: PRESENT: RRR. ABSENT: diastolic murmur, rubs, systolic murmur Pulses: PRESENT: normal dorsalis pedis pul, +2 pedal pulses bilateral Vascular exam: PRESENT: normal capillary refill GI/Abdominal exam: PRESENT: normal bowel sounds, soft. ABSENT: distended, guarding, mass, organolmegaly, rebound, tenderness Rectal exam: PRESENT: deferred Extremities exam: PRESENT: full ROM. ABSENT: calf tenderness, clubbing, pedal edema Neurological exam: PRESENT: alert, awake, oriented to person, oriented to place , oriented to time, oriented to situation, CN II-XII grossly intact. ABSENT: motor sensory deficit Psychiatric exam: PRESENT: appropriate affect, normal mood. ABSENT: homicidal ideation, suicidal ideation Skin exam: PRESENT: dry, intact, warm. ABSENT: cyanosis, rash Result Laboratory Results: 07/06/16 06:17 07/03/16 10:29 07/03/16 10:29 Blood Type O POSITIVE Antibody Screen NEGATIVE Impressions: Abdomen/Pelvis CT 07/04/16 00:00 IMPRESSION: Hematomas along the bilateral rectus muscle sheaths, and space of Retzius. Fluid or hemorrhage dissecting along tissue planes along the right and left abdominal wall between muscle layers. Small to moderate amount of free intraperitoneal fluid. Findings discussed with Dr. Cox Assessment & Plan - Diagnosis (1) Status post repeat low transverse section Is this a current diagnosis for this admission?: YesPlan: Doing well now post op from Take back for evacuation from hematoma. Continue routine postop care. Reviewed ileus with pt. Normal bowel sounds today but decreased appetite. Reviewed slow advance of food. She verbalized understanding. (2) Hematoma complicating a procedure Is this a current diagnosis for this admission?: YesPlan: POD#2 from take back. Reviewed concern for developing ileus but with normal bowel sounds today, Advised to advance care and ambulate. Pt with neck and back stiffness from being in bed. Will try flexeril today. - Time Time Spent with patient: 15-24 minutes Critical Time spent with patient: Less than 15 minutes Medications reviewed and adjusted accordingly: Yes Anticipated discharge: Home Within: within 48 hours - Inpatient Certification Based on my medical assessment, after consideration of the patient's comorbidities, presenting symptoms, or acuity I expect that the services needed warrant INPATIENT care.: Yes I certify that my determination is in accordance with my understanding of Medicare's requirements for reasonable and necessary INPATIENT services [42 CFR 412.3e].: Yes Medical Necessity: Need Close Monitoring Due to Risk of Patient Decompensation, Need For IV Fluids, Need for Pain Control Post Hospital Care: 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
[2016-07-07] MEDS: PRENATAL VITAMIN W-O CA NO5/FE FUMARATE/FA CAPSULE PO SCH (09:29)
[2016-07-07] MEDS: DOCUSATE SODIUM 100 MG CAPSULE PO SCH ×2 (09:29→17:12)
[2016-07-07] MEDS: CYCLOBENZAPRINE HCL 10 MG TABLET PO PRN (09:51)
[2016-07-07] MEDS: ONDANSETRON 4 MG TAB.RAPDIS PO PRN (18:01)
[2016-07-08] MEDS: CEFAZOLIN 2 GM/D5W RTU 2 GM/50 ML RTUPB IV SCH (05:39)
[2016-07-08] MEDS: OXYCODONE-ACETAMINOPHEN 5-325 MG TABLET PO PRN ×2 (05:46→11:53)
[2016-07-08] MEDS ORDERED: CYCLOBENZAPRINE HCL 10 MG TABLET ONE (06:08)
[2016-07-08] MEDS: CYCLOBENZAPRINE HCL 10 MG TABLET PO PRN (07:00)
[2016-07-08] MEDS: PRENATAL VITAMIN W-O CA NO5/FE FUMARATE/FA CAPSULE PO SCH (09:13)
[2016-07-08] MEDS: DOCUSATE SODIUM 100 MG CAPSULE PO SCH (09:13)
[2016-07-08 12:28] LABS: ABSOLUTE EOSINOPHILS # (AUTO) 0.2 10^3/uL (0.0-0.6); ABSOLUTE LYMPHOCYTES (AUTO) 1.6 10^3/uL (0.5-4.7); ABSOLUTE MONOCYTES (AUTO) 0.9 10^3/uL (0.1-1.4); BASOPHILS % (AUTO) 0.4 % (0-2); EOSINOPHILS % (AUTO) 1.9 % (0-6); HGB HCT DIFFERENCE 1.1; LYMPHOCYTES % (AUTO) 16.4 % (13-45); MEAN CORPUSCULAR HEMOGLOBIN 29.7 pg (27.0-33.4); MEAN CORPUSCULAR HGB CONC 34.6 g/dL (32.0-36.0); MEAN CORPUSCULAR VOLUME 86 fl (80-97); MONOCYTES % (AUTO) 9.6 % (3-13); RED BLOOD COUNT 3.61 10^6/uL (3.72-5.28); RED CELL DISTRIBUTION WIDTH 14.3 % (11.5-14.0); SEGMENTED NEUTROPHILS % (AUTO) 71.7 % (42-78); WHITE BLOOD COUNT 9.7 10^3/uL (4.0-10.5)
[2016-07-08 12:29] LABS: HEMOGLOBIN 10.7 g/dL (12.0-15.5)
[2016-07-08 12:47] VITALS: BP 134/84
--- NOTE | 2016-07-18 10:53 | DISCHARGE SUMMARY E ---
Discharge Summary NAME: GRISEL BOOKER : 1985 AGE: 31Y ADMITTED: 07/03/2016 DISCHARGED: 07/08/2016 INDICATION FOR ADMISSION: 1. Intrauterine at 37+ weeks with gestational hypertension versus preeclampsia. 2. History of times 2 and desire for repeat. HOSPITAL COURSE: Patient is a 31-year-old G3,P2 who was admitted at 37 weeks with gestational hypertension versus preeclampsia. She underwent repeat which was her third . This was done on the day of admission. Postoperatively and into the next day she had abdominopelvic pain. An abdominopelvic CT was ordered on 07/04 and this showed a large right subfascial hematoma. She was transfused 2 units and observed. Her pains persisted and on 07/05 she was given 2 more units prbcs and taken back to the OR for evacuation of hematoma. She had a drain placed. Postoperatively she had improvement in her pain. Her postop course after that was unremarkable. The next day she was ambulating and tolerating p.o. By the time of discharge she had passed flatus and had adequate pain control with oral pain medication. Her LINDSEY drain had minimal output and was pulled on the morning of discharge by Dr. Lowery. Her labs at the time of discharge showed a white count of 9.7, hemoglobin of 10.7 and 31.0; platelets were normal. Her admission H and H had been 10 and 29. DISCHARGE MEDICATIONS: Percocet 5/325, 1-2 two p.o. q.i.d. p.r.n. #40 no refills. DISCHARGE INSTRUCTIONS: The patient was advised to follow up in 1 week, sooner should problems arise. She was given routine postop precautions. DICTATING PHYSICIAN: SANGEETA NEGRON M.D. [id number] PHY#: [id number] ID: [id number] JOB#: [id number] ACCT: [id number] cc:SANGEETA NEGRON M.D. > MTDD
== END 2016-07-08 14:23 | disposition home or self-care (01) | DRG 765 ==
LOC: 2S 07-03 09:16
PROVIDERS: ADMIT Specialist; ATTEND Specialist
PROC: 4A1HXCZ Monitoring of Products of Conception, Cardiac Rate, External Approach (ICD-10-PCS; 2016-07-03)
PROC: 10D00Z1 Extraction of Products of Conception, Low, Open Approach (ICD-10-PCS; principal; 2016-07-03 12:00)
PROC: 30233N1 Transfusion of Nonautologous Red Blood Cells into Peripheral Vein, Percutaneous Approach (ICD-10-PCS; 2016-07-04)
PROC: 0WCJ0ZZ Extirpation of Matter from Pelvic Cavity, Open Approach (ICD-10-PCS; 2016-07-05)
PROC: 0DQP0ZZ Repair Rectum, Open Approach (ICD-10-PCS; 2016-07-05)
DX: O13.4 Gestational [pregnancy-induced] hypertension without significant proteinuria, complicating childbirth (principal); N99.841 Postprocedural hematoma of a genitourinary system organ or structure following other procedure; K91.841 Postprocedural hemorrhage of a digestive system organ or structure following other procedure; O14.94 Unspecified pre-eclampsia, complicating childbirth; O34.211 Maternal care for low transverse scar from previous cesarean delivery; O90.2 Hematoma of obstetric wound; O99.02 Anemia complicating childbirth; D64.9 Anemia, unspecified; Z3A.37 37 weeks gestation of pregnancy; Z37.0 Single live birth
CPT/HCPCS: 1961; 36415; 36430; 400; 59025; 74177; 80053; 80307; 81001; 83615; 84550; 85025; 85027; 85610; 85730; 86850; 86900; 86901; 86920; 88307; 94799; J0131; J0330; J0690; J0780; J1100; J1170; J1885; J2250; J2270; J2405; J2590; J2704; J2765; J3010; J3490; J7120; P9016; S0119